=== PATIENT | male | born 1990 | race Caucasian/White ===

== ENCOUNTER 2020-09-25 13:33 | Outpatient (CLI) | payer OTHER ==
[2020-09-25 14:37] VITALS: BP 121/68
--- NOTE | 2020-09-25 14:37 | SLEEP CARE CONSULTATION ---
Information from patient questionnaire entered by Maria M Lyn. I have reviewed and concur with the information entered by Maria M Lyn. This document represents the service I personally performed and the decisions made by me, Uzma Luna ARNP. History of Present Illness Service Date and Time: 09/25/2020 1333 Reason for Visit: New patient Chief Complaint: reports: Unrefreshed sleep, Snoring, Excessive daytime sleepiness, Observed pauses in breathing, Fatigue, Frequent awakenings at night Date of Onset: Since 2016 Usual bedtime: 1000 P Time it takes to fall asleep: ? HRS Snores at night: Yes Observed to quit breathing while asleep: Yes Sleeps alone due to snoring: No Number of times waking at night: 2 times Reasons for waking at night: reports: Choking, Snoring, Gasping for air Toss, Turn, or Twitch while sleeping: Yes Recalls having dreams: Yes Usually gets out of bed at: 530 AM; 0630 on weekends Feels refreshed in the morning: No Morning headache: Yes (about every other day) Sleepy or fatigued during the day: Yes Ever fallen asleep while driving: No (drowsy driving, no accidents) Takes day naps: No Dreams during day naps: Yes Prior sleep studies: No Additional HPI information: I had the pleasure of seeing CAT HONG today regarding the possibility of him having a sleep disorder. His current complaints are snoring, observed pauses in breathing, frequent night awakenings, unrefreshed sleep, excessive daytime sleepiness and fatigue. A few years ago his sleep schedule got messed up with the job he was doing and now he is not sleeping very well. He does not wake up feeling rested and is sleepy/fatigued during the day. His is waking him up at night because she will see him stop breathing and he has woken himself up gasping for air. He is currently being evaluated for possible arthritic psoriasis due to joint pain. He was sent here for further evaluation because of his sleeping issues. - Parasomnia Symptoms Ever been unable to move upon waking from sleep: Yes Walks in sleep: No Talks in sleep: Yes Ever acted out dreams in sleep: Yes (once recently, not happened before) Ever felt weak in the knees when startled or emotional: Yes (sometimes feel weak, especially at the knees; not really affected by emotio) Bothered by creepy, crawly, restless sensations in legs: Yes (at night) Problems with memory or concentration: Yes (both, forgetful) Subjective Initial [place] Sleepiness Scale score: 18 (in 2020) Past Medical History Past Medical History: reports: Other (Currently being treated for psoriasis/arthritis). 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 Patient is and lives in [place]. Have you smoked in the past 12 months: No Years of smokin Quit date: 2018 Alcohol use: Yes Alcohol amount and frequency: 4 over a weekend Caffeine use: Yes Caffeine amount and frequency: 1-2 cups of coffee, daily Family History Family history of sleep disordered breathing: No Family Hx Sleep Apnea: Mother: Snoring, Father: Snoring, Sibling: Snoring Allergies and Home Medications Drug allergies reviewed: Yes (NKDA) Home medication list reviewed: Yes Allergy and home medication list: Omeprazole Hydroxyzine Cetirizine Ibuprofen Review of Systems Weight gain over past 5 years: ? Weight loss over past 5 years: ? Cardiovascular: reports: leg or foot swelling. denies: high blood pressure Gastrointestinal: reports: heartburn, nausea, vomitting Neurological: reports: headaches, disorientation, speech dysfunction Ear/Nose/Throat: reports: dry mouth/throat (every morning), wisdom teeth removed. denies: tonsillectomy Musculoskeletal: reports: joint pain, back pain, muscle pain or cramping Physical Exam Blood Pressure: 121/68 Cuff size: wrist Heart Rate: 90 O2 Saturation: 98 Height: 6 ft 3 in Weight: 256 lb Body Mass Index: 32.0 BMI Classification: Obese Neck circumference: 17 (inches) Nostrils: patent to airflow Mouth and throat: narrow oropharynx Uvula visualization: 100% Mallampati Class I Tongue: normal in size Tonsils: 2+ Chin and jaw: normal size and position Neck: normal w/o lymphadenopathy or thyromegaly Heart: regular rate and rhythm Lungs: clear bilaterally Impression and Plan 1. Suspected Obstructive Sleep Apnea-Hypopnea Syndrome, as suggested by a history of loud and irregular snoring, observed cessation of breath while asleep, gasping or choking in sleep, morning headache, frequent awakening during the night, unrefreshed sleep, cognitive impairment, and excessive daytime sleepiness. Narrow oropharynx and obesity are common predisposing factors for obstructive sleep apnea-hypopnea syndrome. I recommend proceeding to polysomnography to confirm the diagnosis and to assess severity. If the patient has significant sleep disordered breathing, a manual CPAP titration study will also be performed to find the optimal treatment pressure. I informed the patient of what the sleep studies involve and after some discussion, obtained agreement to proceed. The pathophysiology of obstructive sleep apnea-hypopnea syndrome was discussed with the patient and health risks of cardiovascular and cerebrovascular disease if not treated. 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 Patient agreed to plan. * Schedule polysomnography +- manual CPAP titration study and return in 1-2 weeks after the study to discuss result and initiate therapy. * Avoid long distance driving or driving when feeling sleepy. * Avoid alcohol, sedative and muscle relaxant around bedtime. * Attempt to lose weight. * Review instructions provided by trained office staff on how to prepare for the sleep study. * Return for follow-up after sleep study completed. Counseling Topics: Weight loss health impact Visit Type: In Office Time Spent with Patient (minutes): 30 Provider Statement: I spent 100% of the Face to Face Visit with the patient with greater than 50% spent counseling the patient and coordination of care.
== END 2020-09-25 13:34 | disposition home or self-care (01) ==
LOC: SC 13:33
PROVIDERS: ATTEND Nurse Practitioner Family
DX: R06.83 Snoring (principal); R06.81 Apnea, not elsewhere classified; G47.8 Other sleep disorders; R51.9 Headache, unspecified; R41.89 Other symptoms and signs involving cognitive functions and awareness; G47.10 Hypersomnia, unspecified; E66.9 Obesity, unspecified; Z68.32 Body mass index [BMI] 32.0-32.9, adult; Z87.891 Personal history of nicotine dependence
CPT/HCPCS: 99203; 99212

== ENCOUNTER 2020-10-06 14:37 | Outpatient (CLI) | payer OTHER | END 2020-10-06 14:38 | disposition home or self-care (01) | LOC: SC 14:37 | PROVIDERS: ATTEND Nurse Practitioner Family | DX: G47.33 Obstructive sleep apnea (adult) (pediatric) (principal); R09.02 Hypoxemia; E66.9 Obesity, unspecified; Z68.32 Body mass index [BMI] 32.0-32.9, adult | CPT/HCPCS: 95806 ==

== ENCOUNTER 2020-10-27 14:37 | Outpatient (CLI) | payer OTHER ==
--- NOTE | 2020-10-27 15:05 | SLEEP CARE CONSULTATION ---
Information from patient questionnaire entered by Maria M Lyn. I have reviewed and concur with the information entered by Maria M Lyn. This document represents the service I personally performed and the decisions made by me, Uzma Luna ARNP. History of Present Illness Service Date and Time: 10/27/2020 1437 Initial [place] Sleepiness Scale score: 18 (in 2020) Current [place] Sleepiness Scale score: 22 Additional HPI information: CAT HONG returns for follow up and results of the recently performed home sleep study. I explained the pathophysiology behind obstructive sleep apnea. We then spent quite a bit of time discussing different treatment options. For mild obstructive sleep apnea, surgery and oral appliance are alternatives to nasal CPAP therapy but in moderate or severe cases, nasal CPAP is the most effective and reliable treatment. Because apnea is primarily in supine position, then positional management therapy could be effective. Methods discussed such as positioning with pillows, using a T-shirt with tennis balls in the back, and shown commercial products that have a pillow format on back to prevent supine sleep. I reviewed the impact of weight changes on sleep apnea and strongly recommended losing weight. After some discussion, the patient opted to go with the nasal CPAP therapy. Nasal autoCPAP set at 4-15 cmH20 will be ordered with rationale explained. A manual titration study will be ordered if unable to find optimal pressure with office adjustments. I explained how CPAP machine works with sample devices Respironics Dreamstation and [id number] and what to expect when using the machine. Using CPAP every night in order to get used to it was emphasized. Patient advised to put CPAP mask on before getting into bed so as not to fall asleep without CPAP. To assist acclimation to CPAP use, it could also be used for a short time during day while reading or watching TV. The patient was instructed to call the CPAP supplier to discuss any mechanical problem that may occur. If the mask given is uncomfortable or is difficult to keep on through the night even with adjustment, contact the CPAP supplier as many will replace with another mask style if notified before 30 days. If snoring or perceives is not getting enough air or too much air from the machine, notify this office. [facility] patient education PAP tips reviewed and given to patient. Patient counseled not drink alcohol less than 4 hours before bedtime as it can increase snoring and apnea. Patient was cautioned about risks of drowsy driving until sleepiness symptoms resolve. Sleep Study - Results Type of Sleep Study: Home sleep study Prior sleep studies: No Polysomnography/Home Sleep Study results: Physician Impression: The quality of the study is good. The length of the study is adequate (> 240 minutes). Please also see the tabulated and graphic data. 1. Obstructive Sleep Apnea-Hypopnea (ICD-10 G47.33), mild, with an AHI of 9.3/hr and alex SaO2 of 78%. During the study, the patient had 38 apneas (37 obstructive, 0 central, 1 mixed) and 25 hypopneas. The longest episode lasted 55.5 seconds. The respiratory events occurred more frequently during supine sleep (supine AHI was 26.7 and non-supine, 3.00). 2. Hypoxemia (ICD-10 R09.02), moderate, with the lowest oxygen saturation of 78 % and 12.7 minutes with SaO2 under 90%. Baseline oxygen saturation was normal (Average oxygen saturation was 93%). Allergies and Home Medications Home medication list reviewed: Yes (no new meds) Review of Systems Review of systems same as previous: Yes (no changes) Physical Exam Heart Rate: 80 O2 Saturation: 98 Height: 6 ft 3 in Weight: 248 lb Body Mass Index: 30.9 BMI Classification: Obese Impression and Plan 1. Obstructive Sleep Apnea-Hypopnea Syndrome, mild, with lowest oxygen saturation of 78%. Obviously this is the cause of the patients symptoms of unrefreshed sleep, and excessive daytime sleepiness. Positive pressure therapy could benefit his overall health and reduce risks for cardiovascular and cerebrovascular adverse events. As mentioned above, the patient will be started on nasal autoCPAP therapy with pressure set at 4-15 cmH2O. A manual titration study will be completed if unable to find optimal treatment pressure with office adjustments. Compliance guidelines also reviewed. A copy of compliance guidelines will be given for reference at check out. Because the apnea is more severe supine, I instructed to avoid sleeping supine using pillow positioning until able to start CPAP use. 2. Hypoxemia, moderate, with the lowest oxygen saturation of 78 % and 12.7 minutes with SaO2 under 90%. His baseline oxygen saturation was normal with an average oxygen saturation at 93%. * Nasal auto CPAP therapy, pressure at 4-15 cm H2O. * Attempt to lose weight. * Avoid alcohol consumption near bedtime. * Avoid supine sleep until using CPAP. * The patient is again cautioned about driving until sleepiness completely resolves. * Return one month after CPAP obtained. I will assess response to therapy and compliance at that time. Counseling Topics: Spare mask, Weight loss health impact Visit Type: In Office Time Spent with Patient (minutes): 20 Provider Statement: I spent 100% of the Face to Face Visit with the patient with greater than 50% spent counseling the patient and coordination of care.
== END 2020-10-27 14:38 | disposition home or self-care (01) ==
LOC: SC 14:37
PROVIDERS: ATTEND Nurse Practitioner Family
DX: G47.33 Obstructive sleep apnea (adult) (pediatric) (principal); R09.02 Hypoxemia; E66.9 Obesity, unspecified; Z68.30 Body mass index [BMI] 30.0-30.9, adult
CPT/HCPCS: 99212; 99213

== ENCOUNTER 2021-01-15 14:07 | Outpatient (CLI) | payer OTHER ==
--- NOTE | 2021-01-15 14:57 | SLEEP CARE CONSULTATION ---
Information from patient questionnaire entered by Arelt Pena. I have reviewed and concur with the information entered by Arlet Pena. This document represents the service I personally performed and the decisions made by , Uzma Luna ARNP. History of Present Illness Service Date and Time: 01/15/2021 1407 Previous diagnosis: Mild, Obstructive Sleep Apnea-Hypopnea Syndrome AHI: 9.3 (in 2020) Reason for follow up: first compliance Equipment type: CPAP Equipment obtained from: Other ([facility]; got initial supplies) Mask style: Nasal pillows Backup mask available: No (will keep old mask when replaced) Last cushion change: last week Prior sleep studies: Yes Year and Where: 2020 - [facility] Type of Sleep Study: Home sleep study HPI additional information: CAT HONG was diagnosed to have mild, AHI 9.3, obstructive sleep apnea- hypopnea syndrome and returned today for CPAP therapy first compliance follow- up. CPAP Compliance Data - Data Reviewed with Patient Average duration of nightly device use: 2 hr 3 min Compliance rate %: 3 Current pressure setting (cmH2O): 4-15 (median 5.7, avg 7.6, max 8.0) Humidity settin Average residual AHI: 1.0 Subjective Missed days of use due to: reports: travel, other (work schedule) Patient concerns: reports: mask discomfort, condensation in mask/hose (2-3 times with full face mask), nasal congestion, dry mouth, nose, throat. denies: aerophagia, air blowing in eyes, mask leak noise, epistaxis, other Observed to snore while using device: No Current pressure setting perceived as: comfortable On therapy, patient: reports: sleeping better, awakening more refreshed, being more awake and alert during the day, more rested overall. denies: drowsiness while driving Initial [place] Sleepiness Scale score: 18 (in 2020) Current [place] Sleepiness Scale score: 17 Allergies and Home Medications Home medication list reviewed: Yes (no changes) Review of Systems Review of systems same as previous: No (confirmed psoriasis/arthritis) Physical Exam Heart Rate: 97 O2 Saturation: 98 Height: 6 ft 3 in Weight: 238 lb Body Mass Index: 29.7 BMI Classification: Overweight Impression and Plan 1. Obstructive Sleep Apnea-Hypopnea Syndrome, mild, with poor treatment compliance and good apnea control. On CPAP therapy, the patient has better sleep quality and is more rested overall. Patient has been seeing some good results even with the limited time on the CPAP device. He states he will take the mask off in the middle of the night. His has seen him do this. Compliance guidelines reviewed for insurance coverage. I advised him to ask his to nudge him if the mask if off to put the mask back on. He changed from the full face to the nasal pillows mask and states he thinks the nasal mask fits much better. He agreed to try to wear the mask more often and keep on for at least 4 hours a night for compliance. The patients pressure will be changed to autoCPAP 5-8 cmH20 to reflect pressure being used. Patient advised to contact me if pressure change is uncomfortable so that it can be adjusted. Goals for apnea control discussed. Patient's apnea severity and rationale for treatment to reduce apnea, improve sleep quality and reduce cardiovascular and cerebrovascular events was reviewed. Patient advised to try to lose weight. * Change auto CPAP pressure to 5-8 cmH2O * Notify me if snoring with mask or feeling that the pressure is too much or too little * Attempt to lose weight * Call this office if any problems using CPAP * Return for follow up in 1-2 months, or sooner if concerns arise Counseling Topics: Spare mask, Weight loss health impact Visit Type: In Office Time Spent with Patient (minutes): 21 Provider Statement: I spent 100% of the Face to Face Visit with the patient with greater than 50% spent counseling the patient and coordination of care.
== END 2021-01-15 14:08 | disposition home or self-care (01) ==
LOC: SC 14:07
PROVIDERS: ATTEND Nurse Practitioner Family
DX: G47.33 Obstructive sleep apnea (adult) (pediatric) (principal); E66.3 Overweight; Z68.29 Body mass index [BMI] 29.0-29.9, adult
CPT/HCPCS: 99212; 99213

== ENCOUNTER 2021-02-26 16:35 | Outpatient (CLI) | payer OTHER ==
--- NOTE | 2021-02-26 16:56 | SLEEP CARE CONSULTATION ---
Information from patient questionnaire entered by Maria M Lyn. I have reviewed and concur with the information entered by Maria M Lyn. This document represents the service I personally performed and the decisions made by me, Uzma Luna ARNP. History of Present Illness Service Date and Time: 02/26/2021 1635 Previous diagnosis: Mild, Obstructive Sleep Apnea-Hypopnea Syndrome AHI: 9.3 (in 2020) Reason for follow up: one month (1-month f/u - pressure change) Equipment type: CPAP Equipment obtained from: Other ([facility]; getting supplies as needed) Mask style: Nasal pillows Backup mask available: Yes (old mask) Last cushion change: 1 week Prior sleep studies: Yes Year and Where: 2020 - [facility] Type of Sleep Study: Home sleep study HPI additional information: CAT HONG was diagnosed to have mild, AHI 9.3, obstructive sleep apnea- hypopnea syndrome and returned today for CPAP therapy one month pressure change follow-up. 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 denies: drowsiness while driving Initial [place] Sleepiness Scale score: 18 (in 2020) Current [place] Sleepiness Scale score: 16 Allergies and Home Medications Home medication list reviewed: Yes (no changes) Review of Systems Review of systems same as previous: Yes (no changes) Physical Exam Heart Rate: 91 O2 Saturation: 97 Height: 6 ft 3 in Weight: 240 lb Body Mass Index: 29.9 BMI Classification: Overweight Impression and Plan 1. Obstructive Sleep Apnea-Hypopnea Syndrome, mild, with poor treatment compliance and good apnea control. On CPAP therapy, the patient has better sleep quality and is more rested overall. He is noticing the difference and his is sleeping better because he is not snoring loudly when sleeping. He has been able to increase his compliance from his last visit but he still has not reached compliance. 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 He will sometimes get a nap during the day. I advised patient to wear his mask with all sleep, including naps. Compliance guidelines reviewed for insurance coverage. Patient was counseled on the difference between meeting compliance and optimal use of CPAP. Optimal use of CPAP is use of CPAP with all sleep to obtain maximum benefit of treatment. Patient is encouraged to use CPAP with all sleep. Patient's apnea severity and rationale for treatment to reduce apnea, improve sleep quality and reduce cardiovascular and cerebrovascular events was reviewed. Patient was encouraged to lose weight for their overall health and to reduce apneas. * Continue auto CPAP pressure at 5-8 cmH2O * Notify me if snoring with mask or feeling that the pressure is too much or too little * Attempt to lose weight * Call this office if any problems using CPAP * Return for follow up in 1-2 months, or sooner if concerns arise Counseling Topics: Spare mask, Weight loss health impact Visit Type: In Office Time Spent with Patient (minutes): 17 Provider Statement: I spent 100% of the Face to Face Visit with the patient with greater than 50% spent counseling the patient and coordination of care.
== END 2021-02-26 16:36 | disposition home or self-care (01) ==
LOC: SC 16:35
PROVIDERS: ATTEND Nurse Practitioner Family
DX: G47.33 Obstructive sleep apnea (adult) (pediatric) (principal)
CPT/HCPCS: 99212

== ENCOUNTER 2021-09-06 08:00 | Outpatient (CLI) | payer OTHER ==
--- NOTE | 2021-09-06 08:26 | XRAY Report ---
PROCEDURE: Ribs w/PA Chest LT INDICATIONS: COSTOCHONDRITIS TECHNIQUE: 3 views of the left ribs were acquired, along with a single view chest. COMPARISON: None. FINDINGS: SUPPORT DEVICES: None. LUNGS/PLEURA: No focal consolidation, pleural effusion or space-occupying pneumothorax. MEDIASTINUM: The cardiomediastinal silhouette is within normal limits. BONES/SOFT TISSUES: Minimal displaced fracture of the left third and fourth ribs. IMPRESSION: 1.No acute cardiopulmonary abnormality. 2.Minimal displaced fractures of the left third and fourth ribs. Reviewed by: Augustine Montana MD on 09/06/2021 8:24 AM PST Approved by: Augustine Montana MD on 09/06/2021 8:24 AM PST Station ID: [id number]
== END 2021-09-06 23:59 | disposition home or self-care (01) ==
LOC: DI.N 08:00
PROVIDERS: ATTEND Physician Assistant
DX: M94.0 Chondrocostal junction syndrome [Tietze] (principal); S22.42XA Multiple fractures of ribs, left side, initial encounter for closed fracture